=== PATIENT | male | born 1990 | race Caucasian/White ===

== ENCOUNTER 2017-10-18 00:53 | Inpatient (IN) | payer SELFPAY ==
[~2017-10-18] VITALS: Ht 185.4 cm; Wt 93.7 kg
[~2017-10-18 00:53] MED LIST: ADVIL COLD & S1 EACH PO; XARELTO15 M1 PO; XARELTO20 M2 PO; ZYRTEC10 M3 PO
--- NOTE | 2017-10-18 13:46 | Admission Core Measures ---
Acute Coronary Syndrome (CM) ACS Core Measures Acute Coronary Syndrome Diagnosis No Congestive Heart Failure (NEW) CHF Core Measures Congestive Heart Failure Diagnosis No Cerebrovascular Accident CVA Core Measures CVA/TIA Diagnosis No Venous Thromboembolism VTE Core Vito (View Protocol) VTE Risk Factors Surgery No Mechanical VTE Prophylaxis d/t N/A MechProphylax Ordered No VTE Pharm Prophylaxis d/t NA PharmProphylax ordered Problem List As ranked by this Provider includes Assessment & Plan 1. Thoracic outlet syndrome HOME MEDS Home Med List Cetirizine HCl (Zyrtec) 10 MG TABLET 1 TAB PO DAILY ALLERGIES (Reported) Rivaroxaban (Xarelto) 20 MG TABLET 1 TAB PO QPM HISTORY OF BLOOD CLOT ( Reported)
--- NOTE | 2017-10-18 13:50 | Patient Discharge Instructions ---
Discharge Instructions General Discharge Information You were seen/treated for: Thoracic outlet syndrome You had these procedures: Resection of clavicle/first rib Thoracic vent placement/removal Watch for these problems: Increasing pain despite the use of pain medication Increasing chest discomfort and/or shortness of breath Dizziness or weakness Fever greater than 101.5 Do not soak the wound: Yes No bath, but you may shower: Yes Other wound care: Please keep wound clean and dry. No ointments or lotions of any type on or near incision at any time. No exceptions. Daily dry dressing change. Do not soak your wound in a bath or pool at any time until otherwise indicated by your surgeon. You may shower, please dry wound immediately after shower with a clean towel. Diet Continue normal diet: Yes Recommended Diet: Regular Activity Full Activity/No Limits: No Activity Self Limited: Yes Pounds, do NOT lift more than: 0 Activity Limited to: No weight bearing (to right arm) Other activity limits: sling to right arm when up and walking ok to work on distal range of motion, including elbow/wrist/hand limit active shoulder movement for now May use ice on shoulder for comfort Acute Coronary Syndrome Inclusion Criteria At DC or during hospital stay patient has or had the following: ACS DIAGNOSIS No Discharge Core Measures Meds if any: Prescribed or Continued at Discharge Meds if any: NOT Prescribed or Continued at Discharge Congestive Heart Failure Inclusion Criteria At DC or during hospital stay patient has or had the following: CHF DIAGNOSIS No Discharge Core Measures Meds if any: Prescribed or Continued at Discharge Meds if any: NOT Prescribed or Continued at Discharge Cerebrovascular accident Inclusion Criteria At DC or during hospital stay patient has or had the following: CVA/TIA Diagnosis No Discharge Core Measures Meds if any: Prescribed or Continued at Discharge Meds if any: NOT Prescribed or Continued at Discharge Venous thromboembolism Inclusion Criteria VTE Diagnosis No VTE Type NONE VTE Confirmed by (Test) NONE Discharge Core Measures - Per Current guidelines, there needs to be overlap - treatment for the first 5 days of Warfarin therapy. - If discharged on Warfarin prior to 5 days of - overlap therapy, the patient will need to be - assessed for post discharge needs including - *Post discharge parental anticoagulation - *Warfarin and/or parental anticoagulation education - *Follow up date to check INR post discharge At least 5 days overlap therapy as Inpatient No Meds if any: Prescribed or Continued at Discharge Note: Overlap Therapy is Warfarin and Anticoagulant Meds if any: NOT Prescribed or Continued at Discharge
--- NOTE | 2017-10-18 14:02 | RADIOLOGY REPORT ---
EXAMINATION:\H\ \N\XR CHEST CLINICAL INFORMATION: Rule out pneumothorax. COMPARISON: None TECHNIQUE: Frontal view of the chest was obtained. FINDINGS: The endotracheal tube terminates approximately 6.5 cm above the perla, above the level of the clavicles. The lung volumes are low. There is no consolidation, edema, or effusion. No pneumothorax. Surgical clips overlie the right axillary region with a drain in place. The cardiomediastinal silhouette is within normal limits. IMPRESSION: 1. Endotracheal tube terminating 6.5 cm above the perla, above the level of the clavicles. Consider advancement. 2. Low lung volumes. No pneumothorax is seen on this supine view, although evaluation for small pneumothoraces is limited given the supine positioning.
--- NOTE | 2017-10-18 14:43 | Surgical Discharge Summary ---
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 Kyrgyz Review of Systems: See H&P Hospital Course Course Attending Physician: Zaire Majano MD Primary Care Physician: Elizabeth ELIZABETH,Lds Hospital Course: [place] presented to [facility] for a scheduled decompression of thoracic outlet syndrome. Electively taken to the OR on 10/18/17 by and for decompression of the right sided thoracic outlet. His xarelto was intentionally held post-operatively. He was taken back to the OR on 10/21/17 by for US guided central venogram, revision/decompression of right thoracic outlet. Post-operatively on 10/21/17, a thoracic vent was placed by the surgical PA due to a symptomatic iatrogenic pneumothorax following his surgery, which improved his symptoms and resolved the pneumothorax. was consulted for management and follow up of the pneumothorax / vent. and were consulted for orthopedic assessment of his clavicular partial resection, with respect to management and treatment recommendations. No acute orthopedic intervention was recommended, but they have recommended follow up with in 2 weeks for further management. OT was consulted to review exercises with the patient prior to discharge home. His thoravent was removed without difficulty on 10/23 and a follow up cxr revealed a stable trace ptx which improved the followig day. A sling was placed to his operative arm, to be used when out of bed and ambulating. Ice packs were used and recommended to continue at home for further edema control. His xarelto was resumed on 10/24/17, and he was prescribed pain medication at the time of discharge. Allergies: Coded Allergies: No Known Allergies (09/13/17) Significant Procedures: Surgery Date: 10/18/17 Name of Procedure: Decompression of the right sided thoracic outlet with partial resection of clavicle Surgery Date: 10/21/17 Name of Procedure: US guidance for access, extremity and central venogram, Revision/decompression of right thoracic outlet Procedure: 10/21/17 Thoracic vent placement for iatrogenic pneumothorax s/p surgery 10/21/17 10/23/2017 thoravent removal Disposition Summary Disposition Principal Diagnosis: Thoracic outlet syndrome Additional Diagnosis: iatrogenic pneumothorax, resolved s/p thoravent placement Discharge Disposition: home or self care Discharge Instructions General Discharge Information Code Status: Full Code Patient's Diet: Regular, advance as tolerated Patient's Activity: sling when up and walking. ok to work on distal ROM (elbow, wrist, hand), edema control, limit active shoulder flexion / extension / abduction for now, NWB Follow-Up Instructions/Appts: Follow up with Dr. Majano in one week Follow up with in two weeks Medications at Discharge Discharge Medications: Continue taking these medications: Cetirizine HCl (Zyrtec) 10 MG TABLET 1 Tablet ORAL DAILY Ibuprofen/Pseudoephedrine HCl (Advil Cold & Sinus Caplet) 200 MG-30 MG TABLET 1 Capsule ORAL Rivaroxaban (Xarelto) 20 MG TABLET 1 Tablet ORAL Every night Instructions: with food Start taking the following new medications: Oxycodone HCl (Oxycodone HCl) 5 MG TABLET 1-2 Tablet ORAL EVERY 4-6 HOURS NEEDED as needed for pain control Qty = 30 No Refills Instructions: ok to take with tylenol Docusate Sodium (Docusate Sodium) 100 MG CAPSULE 100 Milligram ORAL TWICE DAILY as needed for CONSTIPATION Qty = 60 No Refills Instructions: stool softener available over the counter hold for loose stool / diarrhea Acetaminophen (Tylenol Extra Strength) 500 MG TABLET 1 Tablet ORAL Every 6-8 Hours as Needed as needed for pain any scale Days = 10 No Refills Copies To: Sulaiman Aiken MD Copies To: Sulaiman Aiken MD
[2017-10-18 16:30] VITALS: BP 130/80
--- NOTE | 2017-10-18 17:44 | Operative Report ---
Operative/Inv Procedure Report Surgery Date: 10/18/17 Name of Procedure: Decompression of the right sided thoracic outlet with resection of the first rib Pre-Operative Diagnosis: venous thoracic outlet syndrome Post-Operative Diagnosis: venous thoracic outlet syndrome Estimated Blood Loss: less than 50ml Surgeon/Operating System Designer: Melecio ARELLANO,Sami Tai MD, Nilesh (asst.) Anesthesia: general endotracheal tube Drains: ADI to self-suction Complications: None Condition: Stable to PACU Operative Indication: This is a 27-year-old male with a history of a right upper extremity DVT related to strenuous exercise. Recent imaging has demonstrated compression at the thoracic outlet. He is here for release of this area and addition to a first rib resection. Risks and benefits were explained to him and his parents including bleeding infection pain scar nerve injury and . He decided to proceed with intervention. Operative/Procedure Note Note: The patient was brought in the operating room and laid supine on the operating room table. After adequate anesthesia, IV lines, a timeout was held in accordance with [facility] palsy. Of note due to the advanced complexity of this case, a second surgeon was required due to the lack of a suitable PA or the resident to assist. The patient was then turned into the lateral decubitus position. A beanbag was inflated. An infra-axillary transverse incision was made between the latissimus dorsi and the pectoralis major. Sharp dissection was carried down through the skin and subcutaneous tissue to the level of the fascia. This was divided. Bovie electrocautery and sutures were used to tie crossing lymphatics and small venous blood vessels. The axillary/subclavian vein was then identified. It was followed cephalad. This was done all the way to the thoracic outlet. The subclavius muscle was then noted and divided. There was adherence of this structure in the area of the vein. Once this was divided this improved the space. The subclavian artery was also now noted. It was followed cephalad. The anterior scalene muscle was noted and this also was divided with care. This was done under direct visualization with no injury to any nervous stucture by using Bi-polar cautery. Anesthesia and was present throughout the case holding the arm and giving it intermittent breaks as to not cause any nervous compromise. Once these structures were divided attention was turned to the first rib. A periosteal elevator was used to clean off the intercostal muscle. Overall the electrocautery was used as well. The rib was then divided with a bone cutter. A rongeur was used to excise extra pieces of bone. Approximately 3+ centimeters of bone were resected. The space was noted now to be adequate. The wound was copiously irrigated. A positive pressure insufflation was carried out with no evidence of air bubbles in the area. Gelfoam thrombin was used to attain hemostasis as there was oozing from the bone surface. The Levon-Tomlinson drain was then placed in the area for evacuation of any residual hematoma. The wound was then closed in layers with 2-0 and 3-0 Vicryl sutures. The skin was closed with a 4-0 running Monocryl suture. The wound was dressed with 4 x 4 and Tegaderm dressing. A chest x-ray was performed in the operating room which did not demonstrate a significant pneumothorax. The patient was transported to the recovery area stable awake and alert. He tolerated the procedure well. He was neurovascularly intact at the completion of the procedure.
[2017-10-18 18:30] VITALS: BP 118/72
--- NOTE | 2017-10-18 18:40 | PN- Vascular Surgery ---
Subjective Subjective: Patient without complaints, lying in bed, nausea postop but controlled. no appetite Objective Vital Signs and I&Os Vital Signs Date Time Temp Pulse Resp B/P B/P Pulse O2 O2 Flow FiO2 Mean Ox Delivery Rate 10/18 1630 99.1 78 18 130/80 94 Room Air Physical Exam: VVS afebrile chest-CTA symmetric heart -RRR without MRG abd -soft without distention non-tender right axillary area- dressing in place, dry sensory motor function of the arm WNL radial pulse 2+, hand warm drain with 40cc since on the floor Assessment/Plan Assessment/Plan postop check 27 y/o male S/P decompression of right sided thoracic outlet with resection of the first rib for venous thoracic outlet syndrome bedrest till tomorrow. shaffer in place, D/C in am cont to follow -ADI output advance diet to regular CXR in am Core Measures Venous Thromboembolism VTE Risk Factors Surgery No Mechanical VTE Prophylaxis d/t N/A MechProphylax Ordered No VTE Pharm Prophylaxis d/t NA PharmProphylax ordered
[2017-10-18 20:30] VITALS: BP 124/74
[2017-10-18 22:30] VITALS: BP 110/60
[2017-10-19 02:52] VITALS: BP 118/72
[2017-10-19 06:36] VITALS: BP 120/74
--- NOTE | 2017-10-19 08:07 | PN- Vascular Surgery ---
Subjective Subjective: Patient comfortable, pain is controlled with medication, no fever no flulike illness patient denies any neurologic symptoms in the right upper extremity, there is no shortness of breath, chest pain or difficulty breathing. Objective Vital Signs and I&Os Vital Signs Date Time Temp Pulse Resp B/P B/P Pulse O2 O2 Flow FiO2 Mean Ox Delivery Rate 10/19 0636 98.3 74 16 120/74 94 Room Air 10/19 0252 98.6 76 16 118/72 94 Room Air 10/18 2230 98.2 77 16 110/60 95 Room Air 10/18 2030 98.2 72 16 124/74 95 Room Air 10/18 1830 98.5 65 16 118/72 98 Room Air 10/18 1630 99.1 78 18 130/80 94 Room Air Intake & Output 10/19 1600 10/19 0810/19 0000 10/18 1600 10/18 0800 10/18 0000 Intake Total 600 400 Output Total 500 750 Balance 100 -350 Intake, IV 600 Intake, Oral 400 Output, 50 50 Drainage Output, Urine 450 700 Patient 213 lb 217 lb Weight Physical Exam: Well-developed well-nourished no apparent distress. HEENT: Atraumatic, extraocular motion intact Neck: Supple, no lymphadenopathy, trachea midline Heart: Regular rate and rhythm Respiratory: No respiratory distress. Diminished breath sounds upper lung right side when compared bilaterally however there is significant swelling noted in the right upper chest area. The surgical site dressing is clean dry and intact There is a ADI drain in place with small amount of serosanguineous drainage noted in the bulb which was just emptied prior to my arrival, previously had 50 mL overnight Extremities: No edema, no calf pain Right upper extremity is neurovascularly intact with sensation motor grossly intact, no deficits, mild swelling throughout the right upper arm extending down through the hand Neuro: Alert and oriented x3 Psych: Mood affect normal, normal memory normal judgment. Skin: Warm and dry, no rash on exposed skin Results Last 48 Hours of Labs: Laboratory Tests 10/19 717 Chemistry Sodium Pending Potassium Pending Chloride Pending Carbon Dioxide Pending Anion Gap Pending BUN Pending Creatinine Pending BUN/Creatinine Ratio Pending Hematology CBC w Diff Pending WBC Pending RBC Pending Hgb Pending Hct Pending MCV Pending MCH Pending MCHC Pending RDW Pending Plt Count Pending MPV Pending Assessment/Plan Assessment/Plan Postoperative day #1 status post decompression of right sided thoracic outlet with resection of the first rib for venous thoracic outlet syndrome Out of bed with assist DC Galarza Regular diet Follow chest x-ray this a.m., evaluate for pneumothorax Incentive spirometer Pain medication as needed Continue ADI, we'll discuss with attending timing for removal of drain Follow a.m. labs DVT prophylaxis with heparin subcutaneous Reenforce dressing when necessary Core Measures Venous Thromboembolism VTE Risk Factors Surgery No Mechanical VTE Prophylaxis d/t N/A MechProphylax Ordered No VTE Pharm Prophylaxis d/t NA PharmProphylax ordered
[2017-10-19 08:16] LABS: ABSOLUTE BASOPHIL COUNT 0 /CUMM (0.0-0.2); ABSOLUTE EOSINOPHIL COUNT 0.1 /CUMM (0.0-0.7); ABSOLUTE GRANULOCYTE CT 6.9 /CUMM (1.4-6.5); ABSOLUTE LYMPH COUNT 1.8 /CUMM (1.2-3.4); ABSOLUTE MONOCYTE COUNT 0.6 /CUMM (0.10-0.60); BASOPHIL % 0.4 % (0.0-2.0); EOSINOPHIL % 1.2 % (0-5); HEMATOCRIT 39.5 % (42-52); MEAN CORPUSCULAR HGB CONC 33.3 G/DL (33.0-37.0); MEAN PLATELET VOLUME 8.8 FL (7.4-10.4); PLATELET COUNT 171 /CUMM (130-400); RBC DISTRIBUTION WIDTH 13.4 % (11.5-14.5); RED BLOOD CELL CT 4.39 /CUMM (4.70-6.10); WHITE BLOOD CELL COUNT 9.5 /CUMM (4.8-10.8)
[2017-10-19 09:53] VITALS: BP 122/68
--- NOTE | 2017-10-19 10:13 | RADIOLOGY REPORT ---
EXAMINATION: XR CHEST CLINICAL INFORMATION: Status post first rib resection. COMPARISON: Chest radiograph 10/18/2017. TECHNIQUE: 2 views of the chest were obtained. FINDINGS: There are postoperative changes at the right lung apex. Multiple surgical clips are noted in this region. There is a drain in place. No definite pneumothorax is seen. The endotracheal tube has been removed. The lungs are clear without consolidation, edema, or effusion. The endotracheal tube has been removed. The cardiomediastinal contours are normal. IMPRESSION: Postoperative changes at the right lung apex. No evidence of pneumothorax. The endotracheal tube has been removed.
[2017-10-19 14:16] VITALS: BP 128/82
--- NOTE | 2017-10-19 16:35 | PN- Vascular Surgery ---
Surgical Brief Attending Note Brief Attending Note: VASCULAR ATTENDING NOTE: Pt. seen and examined. Pt. now POD#1 s/p R. thoracic outlet decompression. Pt. with mild to moderate incisional pain & swelling today. No SOB. PE: AF/VSS Ext: Incision c/d/i , drain output decreasing, neuro intact CXR--> No PTX, + clavicular defecit c/w resection A/P Case d/w ortho/pt. and parents Ortho consult pending and case d/w Dr. Thomas with no likely need for ortho. intervention Will need revision on with further decompression of outlet/first rib to ensure decompression May start subcutaneous heparin for DVT prophylaxsis
--- NOTE | 2017-10-19 17:09 | Cons- Orthopedic ---
General Information and HPI Consulting Request Date of Consult: 10/19/17 Requested By: Zaire Majano MD Reason for Consult: Right medial clavicle resection Source of Information: patient Exam Limitations: no limitations History of Present Illness: 27yo RHD male with history of right upper extremity DVT and thoracic outlet syndrome, now POD#1 thoracic outlet decompression via transaxillary approach. Post-op imaging shows resection of a portion of the medial clavicle; no deformity of the clavicle noted and sternoclavicular joint appears intact. Patient seen sitting up in bed; ice bag to right anterior shoulder/neck. Pain is well-controlled at this time, but he reports increased pain with sudden movements or trying to do "too much" with the right arm. Swelling of the right arm and hand and intermittent tingling, which he says was present prior to surgery. Patient reports a history of right shoulder problems, including "over 30" dislocations. He underwent surgery in 2009 in [place] to stabilize the shoulder , but says he re-injured it again playing sports and continues to have problems with his shoulder. Denies recent dislocation. He says he usually goes to the gym twice a week; enjoys playing basketball, football, and frisbee. 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 He drinks alcohol and chews tobacco, but denies smoking cigarettes on a regular basis. Allergies/Medications Allergies: Coded Allergies: No Known Allergies (09/13/17) Home Med List: Cetirizine HCl (Zyrtec) 10 MG TABLET 1 TAB PO DAILY ALLERGIES (Reported) Ibuprofen/Pseudoephedrine HCl (Advil Cold & Sinus Caplet) 200 MG-30 MG TABLET 1 CAP PO ALLERGIES (Reported) Rivaroxaban (Xarelto) 20 MG TABLET 1 TAB PO QPM HISTORY OF BLOOD CLOT ( Reported) with food Past History Medical History Blood Transfusion Hx: No Neurological: NONE EENT: NONE Cardiovascular: NONE Respiratory: NONE Gastrointestinal: GERD Hepatic: NONE Renal: NONE Musculoskeletal: NONE Psychiatric: alcohol dependence Endocrine: NONE Blood Disorders: NONE Cancer(s): NONE 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 Home Services at Home: None Smoking Status: Current Everyday Smoker Review of Systems Review of Systems: No fevers or chills. No other musculoskeletal complaints. Exam & Diagnostic Data Vital Signs and I&O Vital Signs Date Time Temp Pulse Resp B/P B/P Pulse O2 O2 Flow FiO2 Mean Ox Delivery Rate 10/19 1416 98.7 74 18 128/82 94 Room Air 10/19 0953 98.4 78 20 122/68 95 Room Air 10/19 0800 95 Room Air 10/19 0636 98.3 74 16 120/74 94 Room Air 10/19 0252 98.6 76 16 118/72 94 Room Air 10/18 2230 98.2 77 16 110/60 95 Room Air Intake & Output 10/19 1600 10/19 0800 10/19 0000 10/18 1600 10/18 0800 10/18 0000 Intake Total 1100 600 400 Output Total 1840 500 750 Balance -740 100 -350 Intake, IV 200 600 Intake, Oral 900 400 Number 0 Bowel Movements Output, 40 50 50 Drainage Output, Urine 1800 450 700 Patient 213 lb 217 lb Weight Physical Exam: Patient sitting in bed, using incentive spirometer Alert, awake, no acute distress. Right shoulder/upper extremity: Swelling noted over anterior medial clavicle without erythema or ecchymosis. Diffuse swelling noted over right arm and hand as compared to left. No tenderness with palpation of right SC joint, no instability appreciated. Moderate tenderness with palpation of the medial clavicle; no deformity noted or tenting of the skin. No tenderness to palpation of the distal clavicle or AC joint. No lateral shoulder tenderness. Patient unable to forward elevate right shoulder secondary to pain. Able to bring right hand to left anterior chest, but unable to reach left shoulder. Dressing to axillary region clean, dry, intact. Intact elbow flexon/extension, wrist flexion/extension, upper doubler. Hand warm and well-perfused SILT over Ax/M/U/R nerve distributions. Last 24 Hours of Labs: Laboratory Tests 10/19 0618 Chemistry Sodium (137 - 145 mmol/L) 140 Potassium (3.5 - 5.1 mmol/L) 4.0 Chloride (98 - 107 mmol/L) 104 Carbon Dioxide (22 - 30 mmol/L) 28 Anion Gap (5 - 16) 8 BUN (9 - 20 mg/dL) 10 Creatinine (0.7 - 1.2 mg/dL) 0.9 Estimated GFR (>60 ml/min) > 60 BUN/Creatinine Ratio (7 - 25 %) 11.1 Hematology CBC w Diff NO MAN DIFF REQ WBC (4.8 - 10.8 /CUMM) 9.5 RBC (4.70 - 6.10 /CUMM) 4.39 L Hgb (14.0 - 18.0 G/DL) 13.2 L Hct (42 - 52 %) 39.5 L MCV (80.0 - 94.0 FL) 90.0 MCH (27.0 - 31.0 PG) 30.0 MCHC (33.0 - 37.0 G/DL) 33.3 RDW (11.5 - 14.5 %) 13.4 Plt Count (130 - 400 /CUMM) 171 MPV (7.4 - 10.4 FL) 8.8 Gran % (42.2 - 75.2 %) 73.0 Lymphocytes % (20.5 - 51.1 %) 19.4 L Monocytes % (1.7 - 9.3 %) 6.0 Eosinophils % (0 - 5 %) 1.2 Basophils % (0.0 - 2.0 %) 0.4 Absolute Granulocytes (1.4 - 6.5 /CUMM) 6.9 H Absolute Lymphocytes (1.2 - 3.4 /CUMM) 1.8 Absolute Monocytes (0.10 - 0.60 /CUMM) 0.6 Absolute Eosinophils (0.0 - 0.7 /CUMM) 0.1 Absolute Basophils (0.0 - 0.2 /CUMM) 0 Imaging Results: Chest XR 10/19/17: "Note that the right first rib appears intact. However a portion of the proximal third of the right clavicle has been resected." Assessment/Plan Assessment/Plan 27yo RHD male with history of RUE DVT and thoracic outlet syndrome, POD#1 thoracic outlet decompression via transaxillary approach with resection of approximatey 3cm of the medial clavicle. Approximately 2.5cm of medial clavicle remains adjacent to intact sternoclavicular joint. Current plan to return to the OR on 10/21/17 with vascular surgery for revision surgery and resection of 1st rib, again via transaxillary approach. Discussed clavicle resection with patient. He is currently tender over the anteromedial clavicle with associated swelling, but no skin tenting. Discussed role of clavicle, serving as a strut to optimize shoulder strength and motion. Clavicle fractures may be treated non-operatively, however this situation in not easily comparable as roughly 3cm of bone has been removed. Explained that this is a rare situation without a clear treatment algorithm. Treatment options include non-operative management vs bone grafting with plate stabilization. We discussed the possibility of ongoing pain and inability to return to desired activities with non-operative management. We also discussed risks of surgery, including damage to thoracic/mediastinal structures including major blood vessels and lung, non-union of bone graft, and inadequate stabilization due to small amount of remaining medial clavicle. Recommend proceeding with planned surgery on 10/21/17 without concomitant orthopedic procedure. He will recover for thoracic outlet decompression and then reassess right upper extremity function and pain, and discuss need for further surgery if he is symptomatic. Patient is understandably concerned about the function of his right arm and shoulder. CT evaluation of the clavicle will more accurately measure bone surfaces and proximity of the SC joint; this may be obtained as an outpatient. Recommend continued application of ice to right shoulder, pain control, and use of sling to right upper extremity when out of bed and ambulating. Consult Acknowledgment - Thank you for your consult request. Attending MD Review Statement Attending Statement Attending MD Statement: examined this patient, reviewed EMR data (avail), reviewed images
[2017-10-19 21:52] VITALS: BP 138/80
[2017-10-20 07:27] VITALS: BP 128/76
--- NOTE | 2017-10-20 14:19 | PN- Orthopedic ---
Surgical Brief Attending Note Brief Attending Note: Asked to see the patient by Dr. Segura. X-rays were reviewed. I had a long discussion with the patient today and his parents. At this point the patient has a couple of options. My recommendation would be to treat his thoracic outlet syndrome with first ray resection as planned. The patient may recover from that surgery and I would see how the patient does as far as his clavicle pathology. The patient possibly may remain symptomatic from the clavicle resection. If the patient does remain symptomatic from the clavicle resection then surgical option would most likely be allograft placement with plate fixation of the medial clavicle. Again I had a detailed discussion with the patient's and his parents regarding timing of surgery. I do not think there is any major downside a risk to staging the procedure and waiting to see how his clavicle responds prior to undergoing allograft and plate fixation. Obviously the patient and his parents were very concerned about the patient's function of his right upper extremity and I told him most legitimate concerns. The patient needs to recover from his surgery start some physical therapy for his right upper extremity and over the next 6-8 weeks to see how he is doing with his shoulder symptoms. I also gave the parents and the patient the name of at [facility] is well versed in allograft fixation for orthopedic oncology surgery. Examination of the patient today revealed tenderness to palpation over the anterior chest and medial clavicle. There is significant swelling. He does have discomfort with range of motion of shoulder. The right upper extremity however is neurovascularly intact with normal motor function in the radial ulnar and median nerve distributions. Assessment status post resection medial clavicle. At this time and hospitalization no orthopedic intervention recommended or required. Patient will recover from first rib resection and see how functionally he performs prior to make any decisions regarding his clavicle.
[2017-10-20 14:39] VITALS: BP 130/76
--- NOTE | 2017-10-20 20:41 | PN- Vascular Surgery ---
Subjective Subjective: Patient resting comfortably, offering no clinical complaints. pain controlled overall, worsens with movement. no c/o sob. Objective Vital Signs and I&Os Vital Signs Date Time Temp Pulse Resp B/P B/P Pulse O2 O2 Flow FiO2 Mean Ox Delivery Rate 10/20 1439 98.1 71 20 130/76 95 Room Air 10/20 0727 97.8 82 18 128/76 96 10/19 2152 98.0 83 16 138/80 96 Room Air Intake & Output 10/20 1600 10/20 0800 10/20 0000 10/19 1600 10/19 0800 10/19 0000 Intake Total 1000 075 542 8894 600 400 Output Total 1852 5 1370 1840 500 750 Balance -852 235 -470 -740 100 -350 Intake, IV 100 200 600 Intake, Oral 900 240 900 900 400 Number 1 0 Bowel Movements Output, 2 5 20 40 50 50 Drainage Output, Urine 1850 1350 1800 450 700 Patient 210 lb 213 lb 217 lb Weight Physical Exam: aao x3, no acute distress card: rrr pulm: non-labored extremity gross motor/neuro intact Assessment/Plan Assessment/Plan this is a 27 year old male, pod 1 s/p partial resection of clavicle continue current pain regimen, add tylenol per pt request continue to hold anticoagulation npo p mn for further evaluation if needed in OR tomorrow plan of care has been discussed with Dr. Majano Core Measures Venous Thromboembolism VTE Risk Factors Surgery No Mechanical VTE Prophylaxis d/t N/A MechProphylax Ordered No VTE Pharm Prophylaxis d/t NA PharmProphylax ordered
[2017-10-20 22:40] VITALS: BP 120/70
[2017-10-21 06:09] VITALS: BP 118/80
--- NOTE | 2017-10-21 08:26 | PN- Vascular Surgery ---
Surgical Brief Attending Note Brief Attending Note: VASCULAR ATTENDING NOTE: Patient now postop day #3 status post thoracic outlet decompression. Long discussion held with the patient and his family via phone on 10/20 and patient seen and examined today at bedside 10/21. Patient concerned about issues related to post-decompression at the thoracic outlet and reconstruction which may be necessary. Agreed to proceed with venogram and possible further decompression as needed. PE: Afebrile vital signs stable. Right arm shoulder with limited range of motion. DAI output scant A/P S/p TOS decompresion POD #3 1.) Will proceed with venogram and possible further decompression of thoracic outlet with resection of first rib as needed 2.) Patient advised of risks benefits and alternatives of procedure including further injury, brachial plexus tissue, lung injury 3.) He wishes to proceed with intervention after discussion. 4.) Keep patient nothing by mouth. 5.) Ortho f/u appreciated
[2017-10-21 13:23] VITALS: BP 122/64
--- NOTE | 2017-10-21 15:21 | RADIOLOGY REPORT ---
EXAMINATION: XR SHOULDER, RIGHT CLINICAL INFORMATION: Thoracic outlet syndrome. COMPARISON: None TECHNIQUE: C-arm fluoroscopic imaging of right shoulder region performed within the operating room. FLUOROSCOPY TIME: 49.9 seconds. DOSE: 708.59 mrad. NUMBER OF SAVED IMAGES: 2 imaging series acquired during upper extremity venography have been submitted into the electronic picture archive. FINDINGS: Regarding intraoperative procedures and findings, please refer to the operative report provided by Dr. Majano. IMPRESSION: Fluoroscopic imaging assistance was provided to Dr. Majano within the operating room.
--- NOTE | 2017-10-21 17:12 | Operative Report ---
Operative/Inv Procedure Report Surgery Date: 10/21/17 Name of Procedure: US guidance for access, extremity and central venogram, Revision/decompression of right thoracic outlet Pre-Operative Diagnosis: Venous thoracic outlet syndrome Post-Operative Diagnosis: Venous thoracic outlet syndromeVenous thoracic outlet syndrome Estimated Blood Loss: scant Surgeon/Repair Cameraman: Zaire Majano MD, Baxter MD, Andrew Anesthesia: general endotracheal tube Complications: None Condition: Stable to PACU Operative/Procedure Note Note: Patient was brought to the operating room and laid supine on the table. After adequate anesthesia, the lines, timeout was held in accordance with [facility] policy. Attention was first turned to venography. This was performed to reevaluate the thoracic outlet post decompression 2 days ago. Using ultrasound guidance the right brachial vein was accessed. The vein was noted to be patent. Through this a 5 Venezuelan coaxial diator system and a 5 Venezuelan sheath was placed. Through this a right extremity and central venogram was performed. This demonstrates a patent brachial and basilic vein. 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 However there is now flow through the venous system into the central venous outflow. This has significantly improved as compared to his preoperative study. The catheter sheath and wire systems were then removed and BioGlue was placed on the arm. Due to the concern for the retained first rib the decision was made to perform formal resection. The patient was then turned to the lateral decubitus position and prepped and draped again in the usual sterile surgical fashion. The previous incision was then reopened with Metzenbaum scissors. The subcutis tissue was divided and the thoracic outlet reentered. The subclavian vein and artery were noted. Attention was now turned to rib resection. Using Bovie electrocautery and a periosteal elevator the first rib was dissected free. It was then transected with a transcribing machine operator. The edges were smoothed out with rongeurs and a rasp. The wound was closely inspected and hemostasis was noted to be excellent. The wound was then closed in layers with 2-0 and 3-0 Vicryl sutures. Sponge needle and sponge counts were correct. The patient was transferred to recovery room stable awake and alert.
--- NOTE | 2017-10-21 17:49 | RADIOLOGY REPORT ---
EXAMINATION: XR PORTABLE CHEST CLINICAL INFORMATION: Status post revision of thoracic outlet. Evaluate for pneumothorax. COMPARISON: CXR from 10/19/2017 TECHNIQUE: Portable frontal view of the chest was obtained. FINDINGS: Surgical absence of a 4 cm segment of the medial right rib -- as noted on 10/19/2017. Interval surgical resection of the anterolateral right first rib with surgical clips in the operative area. There is increased lucency at the right apex compared to 10/19/2017. A curvilinear line in the right upper chest appears to represent a pleural reflection from a pneumothorax, but some of the bronchovascular markings extend beyond the margin of this line. It may be helpful to obtain repeat upright radiographs during inspiration and expiration. There is increased lucency in the paramediastinal region of the right lower lobe, further raising suspicion for a postoperative pneumothorax. Mild atelectasis in the right lung base. Soft tissue emphysema of the right lateral chest wall. Left lung is well expanded and clear. Cardiac silhouette remains normal in size. The trachea is midline in position. IMPRESSION: - Surgical changes from revision of thoracic outlet surgery. Compared to 10/19/2017, there has been interval resection of the anterolateral right first rib. - There appears to be a new right pneumothorax. However, some bronchovascular markings extend beyond the margin of what is suspected to represent the displaced visceral pleural line. Follow-up upright radiographs during inspiration and expiration may be helpful. These radiographic findings were reviewed in person with Dr. Majano.
--- NOTE | 2017-10-21 18:41 | RADIOLOGY REPORT ---
EXAMINATION: XR CHEST CLINICAL INFORMATION: Post right first rib resection. Pain COMPARISON: Earlier same day TECHNIQUE: Frontal view in inspiration. Frontal view in expiration FINDINGS: Monitoring devices overlie the patient. Cardiac size nancy and vasculature are within normal limits. No mediastinal shift. There is a moderate right pneumothorax. The pleural reflection is at the level the posterior right fifth rib on inspiration. There is absence of lateral aspect of the right first rib. I suspect resection of some of the medial right clavicle. There are surgical clips. There is some chest wall gas. IMPRESSION: Moderate right pneumothorax. Postoperative changes. No significant mediastinal shift
--- NOTE | 2017-10-21 18:48 | RADIOLOGY REPORT ---
EXAMINATION: XR SHOULDER, RIGHT C-arm imaging. CLINICAL INFORMATION: Thoracic aortic outflow syndrome. COMPARISON: None TECHNIQUE: C-arm imaging over right shoulder. Images: 2 Fluoroscopy time 19 seconds FINDINGS: 2 spot views were obtained of the shoulder. One of the spot radiograph shows orthopedic instruments and the second image is over the sternoclavicular joint on the right. IMPRESSION: Imaging provided for surgery over the right shoulder region.
--- NOTE | 2017-10-21 20:29 | RADIOLOGY REPORT ---
EXAMINATION:\H\ \N\XR CHEST CLINICAL INFORMATION: Chest tube placement for right-sided pneumothorax. Follow-up chest x-ray. COMPARISON: Chest x-ray 10/21/2017, 6:20 PM TECHNIQUE: Frontal portable view of the chest was obtained. 7:57 PM FINDINGS: A chest tube is now present over the right hemithorax at the superior lateral chest. The pneumothorax volume is reduced to a small right apical pneumothorax. There is also some air along the medial paraspinal soft tissue densities which is likely also air in the pleural space. There is postsurgical changes of resection of the medial right rib and anterior right first rib. No infiltrate. No pulmonary vascular congestion. IMPRESSION: Placement of right-sided chest tube. Small residual right-sided apical pneumothorax. Decreased volume of the right-sided pneumothorax compared to prior chest x-ray today.
[2017-10-21 20:43] VITALS: BP 124/62
--- NOTE | 2017-10-21 21:24 | Procedure ---
Minor Surgical Procedure Note Date of Procedure: 10/21/17 Procedure Note: While in the recovery room, on postoperative chest x-ray, patient was noted to have a right pneumothorax after his right first rib resection. Inspiratory and expiratory chest x-rays were performed as well and they are consistent with a moderate sized right pneumothorax. I evaluated the patient at the request of Dr. majano and Dr. Dukes and the decision was made to place a thoracic vent into the right anterior chest to treat the pneumothorax. Risks and benefits of the procedure discussed with patient, informed consent was obtained, patient signed consent. The area was prepped and draped with chlorhexidine, draped sterilely, sterile technique was utilized. The procedure was performed at the bedside in the recovery room. The site was identified and a timeout included. The right midclavicular second intercostal space was identified although the landmarks for identifying the area were difficult due to the significant swelling the patient had in the right side of the chest due to his recent surgeries. Approximately 10 cc was utilized to anesthetize the area of the midclavicular line second intercostal space of the right chest. 11 blade scalpel was used to make an incision through the skin and the thoracic vent trocar was gently advanced into the pleural space until the one-way valve indicated change in pressure with patient respirations. The trocar was then removed and the thoracic vent was advanced. The Tegaderm adhesive backing was applied to the patient's chest and the vent was secured in place. The one-way aspiration valve was placed onto the thoracic vent and using the 60 cc syringe approximately 10 aspirations of air was performed. Lung sounds were then faintly audible in the upper chest region although this was limited due to the significant swelling noted postoperatively. Patient tolerated procedure well without complications. He remained hemodynamically stable throughout the procedure. He remained on 3 L of nasal cannula oxygen and his oxygen saturation was 98-99% throughout the procedure. His heart rate remained in the 70s and 80s without any reflexive tachycardia. He was awake and alert throughout the whole procedure and had no complaints. Immediately following the procedure a portable upright chest x-ray was ordered and performed. I discussed the readings with the radiologist and near complete resolution of the pneumothorax was obtained with only a small residual apical pneumothorax remaining. Thoracic vent was in good position. There is no significant condensation or fluid accumulating in the vent. Patient was notified of the results of the chest x-ray and the successful procedure, I discussed this with the PACU, the attending surgeon Dr. Majano and with Dr. Dukes. He is stable to be transferred to the floor having tolerated the procedure well without complications.
--- NOTE | 2017-10-21 22:30 | PN- Vascular Surgery ---
Subjective Subjective: Patient seen postoperatively. His chest x-ray shows pneumothorax, right side, moderate. He is comfortable, there is no chest pain or significant shortness of breath. Currently on 3 L via nasal cannula and satting 99%, heart rate 80. Objective Vital Signs and I&Os Vital Signs Date Time Temp Pulse Resp B/P B/P Pulse O2 O2 Flow FiO2 Mean Ox Delivery Rate 10/213 100 Nasal 2.0L Cannula 10/21 2042 Room Air 10/21 204 98.4 80 16 124/62 95 Room Air 10/21 1323 97.6 68 18 122/64 95 Room Air 10/21 0609 98.1 84 20 118/80 95 10/20 2240 98.4 67 20 120/70 94 Room Air Intake & Output 10/21 1600 10/21 0800 10/21 0000 10/20 1600 10/20 0800 10/20 0000 Intake Total 10 1000 240 900 Output Total 9456 791 3304 1852 5 1370 Balance -1095 -600 -1800 -852 235 -470 Intake, IV 10 100 Intake, Oral 0 900 240 900 Number 0 1 Bowel Movements Output, 5 0 2 5 20 Drainage Output, Urine 6210 195 3053 1850 1350 Patient 205 lb 0 lb Weight Weight Bed scale Measurement Method Physical Exam: Well-developed well-nourished no apparent distress. HEENT: Atraumatic, extraocular motion intact Neck: Supple, no lymphadenopathy trachea midline. Right upper chest with significant swelling noted. No subcu air. No crepitus. No flail chest. Incision site clean dry and intact, Tegaderm in place. Neurovascularly intact right upper extremity with sensation and motor grossly intact Respiratory: No respiratory distress. Absent breath sounds noted right side mid to upper lung. Exam is limited due to swelling of the anterior chest Abdomen: Soft nontender nondistended Extremities: No edema, no calf pain Neuro: Alert and oriented x3 Psych: Mood affect normal, normal memory normal judgment. Skin: Warm and dry, no rash on exposed skin Results Recent Imaging Studies: PATIENT: CON STRONG PRESENT AGE: 27 PATIENT ACCOUNT NO: [id number] : 91 LOCATION: 2NB ORDERING PHYSICIAN: Roxi ELIZABETH SERVICE DATE: 10/21/17 EXAM TYPE: RAD - XRY-CHEST XRAY, TWO VIEWS EXAMINATION: XR CHEST CLINICAL INFORMATION: Post right first rib resection. Pain COMPARISON: Earlier same day TECHNIQUE: Frontal view in inspiration. Frontal view in expiration FINDINGS: Monitoring devices overlie the patient. Cardiac size nancy and vasculature are within normal limits. No mediastinal shift. There is a moderate right pneumothorax. The pleural reflection is at the level the posterior right fifth rib on inspiration. There is absence of lateral aspect of the right first rib. I suspect resection of some of the medial right clavicle. There are surgical clips. There is some chest wall gas. IMPRESSION: Moderate right pneumothorax. Postoperative changes. No significant mediastinal shift DICTATED BY: Isaias Camargo MD DATE/TIME DICTATED:10/21/171834 OYSTER GROWER:ESHA DATE/TIME TRANSCRIBED:10/21/171834 CONFIDENTIAL, DO NOT COPY WITHOUT APPROPRIATE AUTHORIZATION. <Electronically signed in Other Vendor System> SIGNED BY: Isaias Camargo MD 10/21/17 1841 Assessment/Plan Assessment/Plan Postop day #0 status post right rib resection for thoracic outlet syndrome Immediate postoperative course complicated by moderate right-sided pneumothorax. Discussed with attending Dr. Majano and thoracic surgeon Dr. Dukes, recommend Thora vent chest tube placement at the bedside in the recovery room. Please see minor procedure note of the same day. Patient tolerated procedure well without complications. Transfer to the floor postoperatively Regular diet. Perioperative antibiotics IV fluids until tolerating adequate p.o. Hold anticoagulation Monitor for respiratory distress. supplemental O2 Dressing change: To be done by surgery Ambulate as tolerated. Thoracic vent care discussed with nursing staff, call with any complications. Core Measures Venous Thromboembolism VTE Risk Factors Surgery No Mechanical VTE Prophylaxis d/t N/A MechProphylax Ordered No VTE Pharm Prophylaxis d/t NA PharmProphylax ordered
[2017-10-22 00:44] VITALS: BP 128/64
[2017-10-22 06:37] VITALS: BP 136/74
--- NOTE | 2017-10-22 08:56 | RADIOLOGY REPORT ---
EXAMINATION: XR PORTABLE CHEST CLINICAL INFORMATION: Follow-up pneumothorax. COMPARISON: Chest radiography 10/21/2017. TECHNIQUE: Portable frontal view of the chest was obtained. FINDINGS: Right-sided chest tube noted. No significant residual pneumothorax. There is suspected mild parenchymal opacification at the right upper lung which is nonspecific in etiology. Additional minimal patchy opacification at the right lung base, which may represent a degree of atelectasis. No large pleural effusion. No overt pulmonary edema. No mediastinal widening. No acute osseous abnormalities. Right axillary surgical clips. IMPRESSION: No evidence of significant residual pneumothorax. Question of nonspecific subtle right lung opacification, including questionable subtle right apical opacification.
--- NOTE | 2017-10-22 09:12 | PN- Vascular Surgery ---
Subjective Subjective: Reports mostly muscular pain, related to his right chest / shoulder / back. Breathing improved s/p thoracic vent placement post-op last night. Out of bed to bathroom. Voiding without difficulty. Objective Vital Signs and I&Os Vital Signs Date Time Temp Pulse Resp B/P B/P Pulse O2 O2 Flow FiO2 Mean Ox Delivery Rate 10/22 636 98.3 79 16 136/74 95 10/22 0044 98.3 67 18 128/64 97 10/22 0000 Nasal 2.0L Cannula 10/21 2142 100 Nasal 2.0L Cannula 10/21 2042 Room Air 10/21 2042 98.4 80 16 124/62 95 Room Air 10/21 1323 97.6 68 18 122/64 95 Room Air Intake & Output 10/22 1600 10/22 0810/22 0000 10/21 1600 10/21 0800 10/21 0000 Intake Total 850 425 10 Output Total 350 7921 059 0445 Balance 850 75 -1095 -600 -2150 Intake, IV 600 75 10 Intake, Oral 250 350 0 Number 0 Bowel Movements Output, 5 0 Drainage Output, Urine 350 3678 713 0150 Patient 214 lb 205 lb Weight Weight Bed scale Measurement Method Physical Exam: General - alert & oriented x 3. comfortable. no acute distress. Lungs - clear bilaterally. no w/r/r. thoracic vent in place along right chest wall. expected post-operative soft tissue edema, with localized tenderness. dressings c/d/i. Cardiac - s1s2. reg. Abdomen - soft. nontender. Extremities - warm bilaterally. full ROM of right wrist / fingers. distal pulses symmetrical / palpable. sensation grossly equal in all nerve distributions bilateral upper extremities. calves soft and nontender b/l. Current Medications: Current Medications Sig/Brisa Start time Last Medication Dose Route Stop Time Status Admin Acetaminophen 1,000 MG Q6H 10/22 0845 AC 10/22 N/A 1 UNIT IV 10/23 0259 0853 Acetaminophen 650 MG Q4P PRN 10/21 1700 DC PO Acetaminophen 1,000 MG Q6P PRN 10/20 1015 DC 10/20 N/A 1 UNIT IV 1726 Cefazolin Sodium 2 GM IQ8 10/22 0000 DC 10/22 N/A 1 UNIT IV 10/22 0829 0729 Dextrose/Sodium 1,000 ML .[id number] 10/21 1700 DC 10/22 Chloride IV 0730 Diazepam 5 MG TID PRN 10/22 0845 AC PO Docusate Sodium 100 MG BID 10/18 2100 AC 10/22 PO 0839 Heparin Sodium 5,000 UNIT Q8 10/22 0845 AC 10/22 (Porcine) SC 0853 Heparin Sodium 5,000 UNIT Q8 10/19 0600 DC 10/21 (Porcine) SC 0610 Hydromorphone HCl 2 MG .STK-MED ONE 10/21 2016 DC IM 10/21 2017 Hydromorphone HCl 2 MG .STK-MED ONE 10/21 1852 DC IM 10/21 1853 Hydromorphone HCl 2 MG .STK-MED ONE 10/21 1830 DC IM 10/21 1831 Hydromorphone HCl 2 MG .STK-MED ONE 10/21 1718 DC IM 10/21 1719 Hydromorphone HCl 2 MG .STK-MED ONE 10/21 1707 DC IM 10/21 1708 Hydromorphone HCl 2 MG .STK-MED ONE 10/21 1652 DC IM 10/21 1653 Ketorolac 30 MG Q6-PRN PRN 10/22 0845 AC Tromethamine IV Lidocaine 20 ML .STK-MED ONE 10/21 1933 DC IA 10/21 1934 Loratadine 10 MG DAILY 10/19 0900 AC PO Morphine Sulfate 2 MG Q2P PRN 10/21 1700 AC 10/22 IV 0843 Morphine Sulfate 2 MG Q2P PRN 10/18 1630 DC 10/19 IV 2123 Omeprazole 40 MG DAILY AC 10/19 0700 AC 10/22 PO 0729 Ondansetron HCl 4 MG Q6P PRN 10/18 1630 AC IV Oxycodone HCl 5 MG Q4P PRN 10/18 1630 AC PO Oxycodone HCl 10 MG Q4P PRN 10/18 1630 AC 10/22 PO 0729 Patient Medication 1 ED ONE ONE 10/21 1645 DC 10/21 Teaching ED 10/21 1646 2049 Promethazine HCl 12.5 MG Q6P PRN 10/18 1630 AC 10/18 IV 10/25 1344 1702 Scopolamine HBr 0 .STK-MED ONE 10/21 1329 DC TOP Results Recent Imaging Studies: EXAM TYPE: RAD - XRY-PORTABLE CHEST XRAY EXAMINATION: XR PORTABLE CHEST CLINICAL INFORMATION: Follow-up pneumothorax. COMPARISON: Chest radiography 10/21/2017. TECHNIQUE: Portable frontal view of the chest was obtained. FINDINGS: Right-sided chest tube noted. No significant residual pneumothorax. There is suspected mild parenchymal opacification at the right upper lung which is nonspecific in etiology. Additional minimal patchy opacification at the right lung base, which may represent a degree of atelectasis. No large pleural effusion. No overt pulmonary edema. No mediastinal widening. No acute osseous abnormalities. Right axillary surgical clips. IMPRESSION: No evidence of significant residual pneumothorax. Question of nonspecific subtle right lung opacification, including questionable subtle right apical opacification. DICTATED BY: Ajit Cole MD DATE/TIME DICTATED:10/22/17849 PERSONALIZATION SPECIALIST:ESHA DATE/TIME TRANSCRIBED:10/22/17849 Assessment/Plan Assessment/Plan This 27 year old male is POD#4 s/p right partial clavicle resection, POD#1 s/p US guidance for access, extremity and central venogram, revision/decompression of right thoracic outlet, for history of venous thoracic outlet syndrome and hx upper extremity dvt, s/p thoracic vent placement for symptomatic pneumothorax found post-operatively last evening tolerating diet. d/c iv fluids add iv tylenol around the clock add iv toradol around the clock add valium q8 prn muscle spasms continue oxycodone prn pain control continue ice pack restart heparin sc today ok to restart xarelto tomorrow (10/23/17) per OT eval per , sling when up and walking. ok to work on distal ROM (elbow, wrist, hand), edema control, limit active shoulder flexion / extension / abduction for now, NWB f/u cxr. ?continue thoravent. will d/w d/c planning, likely home tomorrow d/w Core Measures Venous Thromboembolism VTE Risk Factors Surgery No Mechanical VTE Prophylaxis d/t N/A MechProphylax Ordered No VTE Pharm Prophylaxis d/t NA PharmProphylax ordered
[2017-10-22] MEDS ORDERED: TYLENOL EXTRA500 M2 PO (09:57)
[2017-10-22] MEDS ORDERED: OXYCODONE HCL5 M1 PO (09:57)
[2017-10-22] MEDS ORDERED: DIAZEPAM5 M1 PO (09:57)
[2017-10-22] MEDS ORDERED: DOCUSATE SODIU100 M3 PO (09:57)
--- NOTE | 2017-10-22 09:57 | PN- Vascular Surgery ---
Surgical Brief Attending Note Brief Attending Note: VASCULAR ATTENDING NOTE: Patient is now postop day #1 s/p venogram with revision of thoracic outlet. He continues to have upper extremity discomfort. He appears to be neurovascularly intact. A chest tube was placed for pneumothorax and this is being managed by thoracic surgery. He is in some discomfort today. Physical exam reveals he is able to move his hand freely but does have upper extremity and back discomfort. He has palpable radial pulse. Swelling is stable. Surgical dressing site is clean dry and intact A/P: 1.) Out of bed to chair today with physical therapy and incentive spirometry 2.) restart subcutaneous heparin 3.) restart Xarelto 20 mg daily tomorrow 4.) continue and request orthopedic follow-up --? need for a sling 5.) Thoracic follow-up appreciated for PTX 6.) Recommend Toradol for further pain control.
[2017-10-22 17:05] VITALS: BP 110/68
--- NOTE | 2017-10-22 17:13 | Cons- Thoracic Surgery ---
General Information and HPI Consulting Request Date of Consult: 10/22/17 Requested By: Zaire Majano MD Reason for Consult: Right pneumothorax Source of Information: patient, old records, PCP Exam Limitations: no limitations History of Present Illness: The patient is a 27-year-old who underwent a first rib resection on 10/21/2017. A postoperative chest x-ray showed a pneumothorax and a thoracic vent was placed. Thoracic surgical evaluation is asked for help in management and treatment. Allergies/Medications Allergies: Coded Allergies: No Known Allergies (09/13/17) Home Med List: Acetaminophen (Tylenol Extra Strength) 500 MG TABLET 1 TAB PO Q6-8P PRN pain any scale Cetirizine HCl (Zyrtec) 10 MG TABLET 1 TAB PO DAILY ALLERGIES (Reported) Diazepam 5 MG TABLET 5 MG PO TID PRN muscle spasm stagger with pain medication Docusate Sodium 100 MG CAPSULE 100 MG PO BID PRN CONSTIPATION stool softener available over the counter hold for loose stool / diarrhea Ibuprofen/Pseudoephedrine HCl (Advil Cold & Sinus Caplet) 200 MG-30 MG TABLET 1 CAP PO ALLERGIES (Reported) Oxycodone HCl 5 MG TABLET 1-2 TAB PO Q4-6 PRN PRN pain control stagger with valium. ok to take with tylenol Rivaroxaban (Xarelto) 20 MG TABLET 1 TAB PO QPM HISTORY OF BLOOD CLOT ( Reported) with food Current Medications: Current Medications Sig/Brisa Start time Last Medication Dose Route Stop Time Status Admin Acetaminophen 1,000 MG Q6H 10/22 0845 AC 10/22 N/A 1 UNIT IV 10/23 0259 1425 Acetaminophen 650 MG Q4P PRN 10/21 1700 DC PO Cefazolin Sodium 2 GM IQ8 10/22 0000 DC 10/22 N/A 1 UNIT IV 10/22 0829 0729 Dextrose/Sodium 1,000 ML .[id number] 10/21 1700 DC 10/22 Chloride IV 0730 Diazepam 5 MG TID PRN 10/22 0845 AC PO Docusate Sodium 100 MG BID 10/18 2100 AC 10/22 PO 0839 Heparin Sodium 5,000 UNIT Q8 10/22 0845 AC 10/22 (Porcine) SC 1426 Hydromorphone HCl 2 MG .STK-MED ONE 10/22 2015 DC IM 10/21 2016 Hydromorphone HCl 2 MG .STK-MED ONE 10/21 1852 DC IM 10/21 1853 Hydromorphone HCl 2 MG .STK-MED ONE 10/21 1830 DC IM 10/21 1831 Hydromorphone HCl 2 MG .STK-MED ONE 10/21 1718 DC IM 10/21 1719 Ketorolac 30 MG Q6-PRN PRN 10/22 0845 AC 10/22 Tromethamine IV 1259 Lidocaine 20 ML .STK-MED ONE 10/21 1933 DC IA 10/21 1934 Loratadine 10 MG DAILY 10/19 09 AC PO Morphine Sulfate 2 MG Q2P PRN 10/21 1700 AC 10/22 IV 1431 Omeprazole 40 MG DAILY AC 10/19 0700 AC 10/22 PO 0729 Ondansetron HCl 4 MG Q6P PRN 10/18 1630 AC IV Oxycodone HCl 5 MG Q4P PRN 10/18 1630 AC PO Oxycodone HCl 10 MG Q4P PRN 10/18 1630 AC 10/22 PO 1622 Promethazine HCl 12.5 MG Q6P PRN 10/18 1630 AC 10/18 IV 10/25 1344 1702 Past History Medical History Blood Transfusion Hx: No Neurological: NONE EENT: NONE Cardiovascular: NONE Respiratory: NONE Gastrointestinal: GERD Hepatic: NONE Renal: NONE Musculoskeletal: NONE Psychiatric: alcohol dependence Endocrine: NONE Blood Disorders: NONE Cancer(s): NONE 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 Home Services at Home: None Smoking Status: Current Everyday Smoker Review of Systems Review of Systems: Review of systems is notable for an absence of any significant respiratory symptoms. He does have pain with deep breathing and coughing but that is mainly related to chest wall pain and not pleuritic pain. He has the expected postoperative pain. The rest of his 12 point review of systems is unremarkable. Exam & Diagnostic Data Vital Signs and I&O Vital Signs Date Time Temp Pulse Resp B/P B/P Pulse O2 O2 Flow FiO2 Mean Ox Delivery Rate 10/22 170 98.4 69 18 110/68 97 10/22 1600 Nasal 2.0L Cannula 10/22 1051 Nasal 2.0L Cannula 10/22 0800 95 Nasal 2.0L Cannula 10/22 0637 98.3 79 16 136/74 95 10/22 0044 98.3 67 18 128/64 97 10/22 0000 Nasal 2.0L Cannula 10/21 2142 100 Nasal 2.0L Cannula 10/21 2042 Room Air 10/21 2042 98.4 80 16 124/62 95 Room Air Intake & Output 10/22 1600 10/22 0800 10/22 0000 10/21 1600 10/21 0810/21 0000 Intake Total 1180 850 425 10 Output Total 500 819 809 4047 600 2150 Balance 680 350 75 -1095 -600 -2150 Intake, IV 220 600 75 10 Intake, Oral 960 250 350 0 Number 0 Bowel Movements Output, 5 0 Drainage Output, Urine 500 741 047 9091 600 2150 Patient 214 lb 205 lb Weight Weight Bed scale Measurement Method Physical Exam: On physical examination he appears well. His skin is warm and well perfused no suspicious lesions noted. The sclerae are anicteric and mucous membranes are moist. There is no cervical or subclavicular lymphadenopathy. His breath sounds are clear and full bilaterally with no wheezes rhonchi noted. The cardiac exam shows regular rhythm and rate no murmurs or sounds. There is a thoracic vent in place and there is deflection of the diaphragm in the device. His abdomen is soft and nontender with no masses. The periphery shows no cyanosis clubbing or edema. His neurologic exam is grossly normal for motor and sensory function. Imaging Results: Chest x-ray this morning shows reexpansion of the lung with no residual pneumothorax. Assessment/Plan Assessment/Plan 27-year-old gentleman status post first rib resection with a pneumothorax on his postoperative chest x-ray. Pneumothorax is a described complication of this procedure usually related to a pleural tear related to mobilization of the first rib or mobilization of the muscles. I suspect that that is his etiology with entry of air from the outside. I doubt given the way the case is done and the description of the operative procedure that there was ever any parenchymal lung injury. The thoracic vent is showing titling. We will keep it in place for another 24 hours and tested to underwater seal tomorrow morning. If there is no evidence of air leak the vent can be removed. I would prefer that his Xarelto be held until Wednesday if acceptable. A heparin drip can be started tomorrow after the event is removed. We will reevaluate in the morning with underwater seal on the thoracic vent. Consult Acknowledgment - Thank you for your consult request.
[2017-10-22 21:24] VITALS: BP 118/64
[2017-10-23 06:20] VITALS: BP 100/54
--- NOTE | 2017-10-23 10:04 | PN- Vascular Surgery ---
See Addendum Surgical Brief Attending Note Brief Attending Note: VASCULAR ATTENDING NOTE: Patient is now postop day #2 s/p venogram with revision of thoracic outlet. Decreased pain and increased ROM today. He is neurovascularly intact. A chest tube was placed for pneumothorax and this is being managed by thoracic surgery. This may be removed today. Physical exam reveals he is able to move his hand and arm now freely with mild discomfort. He has palpable radial pulse. Swelling is stable. Surgical dressing site is clean dry and intact A/P: 1.) Out of bed to chair today with physical therapy and incentive spirometry 2.) Start heparin drip when OK with thoracic to remove vent 3.) restart Xarelto 20 mg daily tomorrow once vent is removed 4.) ? D/c home tommo or Wednesday on 20 mg of Xarelato
--- NOTE | 2017-10-23 11:27 | PN- Thoracic Surgery ---
See Addendum Subjective Subjective: Breathing better. He is on the spirometer and taking good deep breaths. Pain is better controlled. Objective Vital Signs and I&Os Vital Signs Date Time Temp Pulse Resp B/P B/P Pulse O2 O2 Flow FiO2 Mean Ox Delivery Rate 10/23 0800 98 Nasal 2.0L Cannula 10/23 0620 97.8 63 20 100/54 97 Nasal 2.0L Cannula 10/23 0000 97 Nasal 2.0L Cannula 10/224 98.5 78 18 118/64 96 10/22 1705 98.4 69 18 110/68 97 10/22 1600 97 Nasal 2.0L Cannula Intake & Output 10/23 1600 10/23 0800 10/23 0000 10/22 1600 10/22 0800 10/22 0000 Intake Total 364 177 3314 850 425 Output Total 0 680 500 500 350 Balance 630 -320 680 350 75 Intake, IV 150 120 220 600 75 Intake, Oral 480 240 960 250 350 Number 0 0 Bowel Movements Output, 0 Drainage Output, Urine 680 500 500 350 Patient 214 lb 214 lb Weight Weight Bed scale Measurement Method Physical Exam: There is some deflection of the diaphragm on the thoracic vent. His breath sounds are clear bilaterally. The thoracic vent is connected to underwater seal and with deep breathing and cough there is no evidence of an air leak. The thoracic vent was then occluded. Current Medications: Current Medications Sig/Brisa Start time Last Medication Dose Route Stop Time Status Admin Acetaminophen 1,000 MG Q6H 10/22 0845 DC 10/23 N/A 1 UNIT IV 10/23 0259 0231 Diazepam 5 MG TID PRN 10/22 0845 AC PO Docusate Sodium 100 MG BID 10/18 2100 AC 10/23 PO 0912 Heparin Sodium 5,000 UNIT Q8 10/22 0845 AC 10/23 (Porcine) SC 0630 Ketorolac 30 MG Q6-PRN PRN 10/22 0845 AC 10/23 Tromethamine IV 0949 Loratadine 10 MG DAILY 10/19 09 AC PO Morphine Sulfate 2 MG Q2P PRN 10/21 1700 AC 10/22 IV 2246 Omeprazole 40 MG DAILY AC 10/19 0700 AC 10/23 PO 0630 Ondansetron HCl 4 MG Q6P PRN 10/18 1630 AC IV Oxycodone HCl 5 MG Q4P PRN 10/18 1630 AC PO Oxycodone HCl 10 MG Q4P PRN 10/18 1630 AC 10/23 PO 0912 Promethazine HCl 12.5 MG Q6P PRN 10/18 1630 AC 10/18 IV 10/25 1344 1702 Assessment/Plan Assessment/Plan We will check an x-ray in 1 hour. If there is no significant change from previous x-rays in the thoracic vent can be removed. He can be started on heparin after that and I would prefer that his oral anticoagulants either Xarelto or Eliquis be held until [place].
[2017-10-23 13:59] VITALS: BP 144/60
--- NOTE | 2017-10-23 15:41 | RADIOLOGY REPORT ---
EXAMINATION: XR CHEST CLINICAL INFORMATION: Right-sided pneumothorax. For follow up. COMPARISON: 10/22/2017 and 10/21/2017. TECHNIQUE: 2 views of the chest were obtained. FINDINGS: There is a trace amount of right apical pneumothorax present. Postsurgical changes are noted within the right upper hemithorax. Cardiomediastinal silhouette is within normal limits. No new abnormalities. IMPRESSION: Trace amount of right apical pneumothorax.
[2017-10-23 21:30] VITALS: BP 160/60
[2017-10-24 01:02] LABS: PTT 42 SEC (25-37)
[2017-10-24 06:24] VITALS: BP 110/60
--- NOTE | 2017-10-24 08:22 | RADIOLOGY REPORT ---
EXAMINATION: XR PORTABLE CHEST CLINICAL INFORMATION: Rule out pneumothorax post thoravent removal. COMPARISON: Chest radiograph 10/23/2017 TECHNIQUE: Portable AP upright view of the chest.. FINDINGS: Suspect trace right apical pneumothorax, less prominent than prior. Lungs and pleural spaces are otherwise clear. The heart size is normal. Surgical clips overlie the upper right chest. IMPRESSION: Trace right apical pneumothorax, improved in size since the previous days exam and status post thoravent removal.
[2017-10-24 08:51] LABS: PTT 59 SEC (25-37)
--- NOTE | 2017-10-24 09:43 | PN- Vascular Surgery ---
Surgical Brief Attending Note Brief Attending Note: Pt seen and examined, he feels "ok", pain occasionally, breathing comfortably CXR reviewed - diminshing scant pneumothorax, improved today after vent removal yesterday. Plan to change to oral Xarelto today. Patient would prefer to remain until tomorrow. Observe today while on Xarelto, and plan for DC home tomorrow.
[2017-10-24 14:56] VITALS: BP 112/72
[2017-10-24 22:50] VITALS: BP 124/82
[2017-10-25 06:00] VITALS: BP 104/62
[2017-10-25] MEDS ORDERED: OXYCODONE HCL5 M1 PO ×2 (07:46→07:49)
--- NOTE | 2017-10-25 08:31 | PN- Vascular Surgery ---
Subjective Subjective: Awake, alert No complaints overnight Denies SOB, pain is well controlled Objective Vital Signs and I&Os Vital Signs Date Time Temp Pulse Resp B/P B/P Pulse O2 O2 Flow FiO2 Mean Ox Delivery Rate 10/25 06 97.7 67 16 104/62 98 10/24 2250 98.2 72 16 124/82 93 Room Air 10/24 1456 97.8 69 18 112/72 98 Room Air Intake & Output 10/25 0000 10/24 0000 Intake Total 800 540.4 1000 Output Total 550 1 500 Balance -550 799 40.4 1000 Intake, IV 300.4 Intake, Oral 004 893 2185 Output, Stool 1 Output, Urine 550 500 Patient 207 lb Weight Weight Bed scale Measurement Method Physical Exam: VSS, afebrile General: alert and oriented times three Chest: clear anteriorly bilaterally, RRR Abd: soft, good bs Ext: warm, no edema, normosensate RUE with good strength at hand/wrist Wds: incisions dressed and dry Assessment/Plan Assessment/Plan 27yo male s/p Right clavicle/first rib resection xarelto restarted yesterday cxr stable pain is well controlled OT to give instructions this morning after which pt can be discharged home sling at all times while out of bed non weight bear to RUE ROM to hand/wrist/elbow only follow up later this week with Dr Majano Core Measures Venous Thromboembolism VTE Risk Factors Surgery No Mechanical VTE Prophylaxis d/t N/A MechProphylax Ordered No VTE Pharm Prophylaxis d/t NA PharmProphylax ordered
[2017-10-25] MEDS ORDERED: XARELTO10 M1 PO (12:10)
== END 2017-10-25 12:45 | DRG 29 ==
LOC: 2NB 00:53 → SDA 00:53 → ENRESERV 14:06 → ENTRNSPT 16:15 → EDTRNSPT 16:17 → EDTRNSPTSTS 16:17 → 2NB 16:26 → CMPTRNSPT 16:38 → ENTRNSPT 10-21 20:34 → EDTRNSPT 10-21 20:36 → EDTRNSPTSTS 10-21 20:36 → CMPTRNSPT 10-21 20:54 → ENPENDDIS 10-25 08:48 → 2NB 10-25 12:45
PROVIDERS: Nurse Practitioner; Surgery Vascular Surgery
PROC: 01N30ZZ Release Brachial Plexus, Open Approach (ICD-10-PCS; principal; 2017-10-18)
PROC: 0PB90ZZ Excision of Right Clavicle, Open Approach (ICD-10-PCS; principal; 2017-10-18)
PROC: 0PT10ZZ Resection of 1 to 2 Ribs, Open Approach (ICD-10-PCS; 2017-10-21)
PROC: B50MYZZ Plain Radiography of Right Upper Extremity Veins using Other Contrast (ICD-10-PCS; 2017-10-21)
PROC: 0W9930Z Drainage of Right Pleural Cavity with Drainage Device, Percutaneous Approach (ICD-10-PCS; 2017-10-21)
DX: G54.0 Brachial plexus disorders (principal); J95.811 Postprocedural pneumothorax; K21.9 Gastro-esophageal reflux disease without esophagitis; Y83.8 Other surgical procedures as the cause of abnormal reaction of the patient, or of later complication, without mention of misadventure at the time of the procedure; Z86.718 Personal history of other venous thrombosis and embolism
CPT/HCPCS: 36415; 36592; 71045; 71046; 73030-RT; 82436; 87086; 88304; C1725; J0131; J0690; J1644; J1885; J2001; J2405; J2550; J3490; J7042; Q9967